=== PATIENT | female | born 1955 | race Caucasian/White ===

== ENCOUNTER 2019-05-01 05:45 | Inpatient (IN) ==
[2019-04-24 14:58] LABS: Apearance,Urine CLEAR (Clear); Bacteria,Urine Occasional /HPF (Few); Bilirubin,Urine Negative (Negative); Blood, Urine Negative (Negative); Glucose,Urine (UA) Negative (Negative); Ketones,Urine Negative (Negative); Mucus,Urine Occasional /LPF (Occasional); Nitrite,Urine Negative (Negative); Protein,Urine Negative; RBC,Urine 1 /HPF (0-4); Squamous Epithelial Cell,Urine Occasional /HPF (0-10); Urine Color Yellow (Yellow); Urine Specific Gravity 1.017 (1.001-1.035); Urine Urobilinogen < 2.0 EU/DL (0.2-1.0); WBC,Urine <1 /HPF (0-6)
[2019-04-24 15:03] LABS: PT Patient Result 10.7 SECS; Partial Thromboplastin Time 25.2 SECS (0-40)
[2019-04-24 15:06] LABS: Calcium 8.6 MG/DL (8.5-10.1); Osmolality,Calculated 283.1 MOS/KG (273-304)
[~2019-05-01 05:45] MED LIST: SODIUM CHLORIDE 0.9% 1,000 ML IV PRN
[2019-05-01] MEDS ORDERED: SCOPOLAMINE 1.5 MG PATCH TRANSDERM STA (06:15)
[2019-05-01 06:19] LABS: Basophils % 0.7 % (0.0-0.8); Eosinophils # 0.1 10*3/uL (0.0-0.87); Eosinophils % 1.2 % (0.00-10.9); Hematocrit 39.1 VOL% (35.7-47.0); Hemoglobin 12.7 GM/DL (12.0-16.0); Immature Granulocytes % 0.2 %; Immature Granulocytes Absolute 0.01 #; Lymphocytes # 1.7 10*3/uL (1.4-4.0); Lymphocytes % 29.7 % (21.3-54.2); Mean Corpuscular HGB Conc 32.5 GM/DL (32-36); Mean Corpuscular Volume 95.1 FL (87-102); Mean Platelet Volume 10.5 FL (9.6-12.0); Monocytes % 9.8 % (1.7-12.7); Neutrophils % 58.4 % (38.7-73.9); Platelet Count 210 T/CUMM (130-400); Red Blood Count 4.11 MC/CUMM (3.8-5.5); Red Cell Distribution Width 12.3 % (9.3-17.3); White Blood Count 5.7 T/CUMM (4-12)
[2019-05-01] MEDS ORDERED: DIAZEPAM 5 MG TABLET PO STA (06:20)
[2019-05-01] MEDS ORDERED: FAMOTIDINE 20 MG TABLET PO STA (06:20)
[2019-05-01] MEDS ORDERED: TISSUE ADHESIVE 1 EACH APPLICATOR TOP ONE (06:28)
[2019-05-01] MEDS ORDERED: BUPIVACAINE LIPOSOMAL 20 ML/266 MG VIAL ONE (06:28)
[2019-05-01] MEDS ORDERED: LACTATED RINGERS 1,000 ML IV SCH (06:30)
[2019-05-01] MEDS ORDERED: SCOPOLAMINE 1.5 MG PATCH TRANSDERM ONE (06:33)
[2019-05-01] MEDS ORDERED: FAMOTIDINE 20 MG TABLET ONE (06:33)
[2019-05-01] MEDS ORDERED: DIAZEPAM 5 MG TABLET ONE (06:33)
[2019-05-01] MEDS ORDERED: CEFUROXIME 1,500 MG VIAL ONE (06:46)
[2019-05-01] MEDS ORDERED: CEFUROXIME INJ 1,500 MG in SODIUM CHLORIDE 0.9% 100 ML IV ONE (07:03)
[2019-05-01] MEDS ORDERED: PHENYLEPHRINE DRIP 20 MG/250 ML PREMIX IV ONE (08:03)
[2019-05-01] MEDS ORDERED: ONDANSETRON 4 MG/2 ML VIAL IV PRN (10:32)
[2019-05-01] MEDS ORDERED: SUGAMMADEX 200 MG/2 ML VIAL IV ONE (10:38)
[2019-05-01] MEDS ORDERED: PROPOFOL 200 MG/20 ML VIAL IV ONE (10:40)
[2019-05-01] MEDS ORDERED: SEVOFLURANE 1 UNIT/15 MINUTE INH ONE (10:40)
[2019-05-01] MEDS ORDERED: PHENYLEPHRINE 1 MG/10 ML SYRINGE IV ONE (10:41)
[2019-05-01] MEDS ORDERED: fentaNYL 100 MCG/2 ML VIAL ONE (10:41)
[2019-05-01] MEDS ORDERED: MIDAZOLAM 2 MG/2 ML VIAL ONE (10:41)
[2019-05-01] MEDS ORDERED: ONDANSETRON 4 MG/2 ML VIAL ONE (10:41)
[2019-05-01] MEDS ORDERED: DEXAMETHASONE 4 MG/1 ML VIAL ONE (10:41)
[2019-05-01] MEDS ORDERED: ROCURONIUM 100 MG/10 ML VIAL IV ONE (10:42)
[2019-05-01] MEDS ORDERED: SODIUM CHLORIDE 0.9% 1,000 ML IV ONE (10:42)
[2019-05-01] MEDS ORDERED: LACTATED RINGERS 1,000 ML IV ONE (10:42)
[2019-05-01] MEDS ORDERED: SUCCINYLCHOLINE 200 MG/10 ML VIAL ONE (10:42)
[2019-05-01 10:45] LABS: Apearance,Urine CLEAR (Clear); Bacteria,Urine Occasional /HPF (Few); Bilirubin,Urine Negative (Negative); Blood, Urine Negative (Negative); Glucose,Urine (UA) Negative (Negative); Ketones,Urine Negative (Negative); Mucus,Urine Occasional /LPF (Occasional); Nitrite,Urine Negative (Negative); Protein,Urine Negative; RBC,Urine 2 /HPF (0-4); Squamous Epithelial Cell,Urine Occasional /HPF (0-10); Urine Color Yellow (Yellow); Urine Specific Gravity 1.014 (1.001-1.035); Urine Urobilinogen < 2.0 EU/DL (0.2-1.0)
[2019-05-01 10:56] LABS: Basophils % 0.2 % (0.0-0.8); Eosinophils % 0.1 % (0.00-10.9); Hematocrit 32.4 VOL% (35.7-47.0); Immature Granulocytes % 0.6 %; Immature Granulocytes Absolute 0.05 #; Lymphocytes # 1.2 10*3/uL (1.4-4.0); Lymphocytes % 13.2 % (21.3-54.2); Mean Corpuscular Volume 95.6 FL (87-102); Mean Platelet Volume 10.7 FL (9.6-12.0); Monocytes % 3.3 % (1.7-12.7); Neutrophils % 82.6 % (38.7-73.9); Platelet Count 186 T/CUMM (130-400); Red Blood Count 3.39 MC/CUMM (3.8-5.5); Red Cell Distribution Width 12.2 % (9.3-17.3)
[2019-05-01 10:59] LABS: Hemoglobin 10.7 GM/DL (12.0-16.0); White Blood Count 8.9 T/CUMM (4-12)
[2019-05-01 11:35] LABS: Calcium 7.8 MG/DL (8.5-10.1); Osmolality,Calculated 287.1 MOS/KG (273-304)
[2019-05-01] MEDS: KETOROLAC 15 MG/1 ML VIAL IV SCH ×3 (11:58→22:14)
[2019-05-01] MEDS: POTASSIUM CHLORIDE INJ 10 MEQ in SODIUM CHLORIDE 0.45% 1,000 ML IV SCH (11:58)
[2019-05-01] MEDS: GABAPENTIN 100 MG CAPSULE PO SCH ×2 (15:29→20:54)
[2019-05-01] MEDS: ACETAMINOPHEN INJ 1,000 MG in PREMIX 1 EACH IV SCH ×2 (16:38→22:15)
[2019-05-01] MEDS: CEFUROXIME INJ 1,500 MG in SYRINGE 1 EACH IV SCH (18:11)
[2019-05-02] MEDS: POTASSIUM CHLORIDE INJ 10 MEQ in SODIUM CHLORIDE 0.45% 1,000 ML IV SCH ×2 (01:04→16:12)
[2019-05-02 05:22] LABS: Basophils % 0.3 % (0.0-0.8); Hematocrit 31.2 VOL% (35.7-47.0); Hemoglobin 10.3 GM/DL (12.0-16.0); Immature Granulocytes % 0.3 %; Immature Granulocytes Absolute 0.03 #; Lymphocytes # 1.3 10*3/uL (1.4-4.0); Mean Platelet Volume 11.9 FL (9.6-12.0); Monocytes % 9.5 % (1.7-12.7); Neutrophils % 75.9 % (38.7-73.9); Platelet Count 174 T/CUMM (130-400); Red Blood Count 3.25 MC/CUMM (3.8-5.5); Red Cell Distribution Width 12.5 % (9.3-17.3); White Blood Count 9.3 T/CUMM (4-12)
[2019-05-02] MEDS: ACETAMINOPHEN 500 MG TABLET PO SCH ×4 (05:37→22:12)
[2019-05-02] MEDS: KETOROLAC 15 MG/1 ML VIAL IV SCH ×4 (05:37→22:13)
[2019-05-02 05:38] LABS: Calcium 7.6 MG/DL (8.5-10.1)
[2019-05-02] MEDS: CEFUROXIME INJ 1,500 MG in SYRINGE 1 EACH IV SCH (05:39)
[2019-05-02] MEDS: ENOXAPARIN 40 MG/0.4 ML SYRINGE SUBCUT SCH (05:39)
[2019-05-02] MEDS: GABAPENTIN 100 MG CAPSULE PO SCH ×3 (10:08→21:18)
[2019-05-02] MEDS: ASPIRIN EC 81 MG TABLET PO SCH (10:08)
[2019-05-02] MEDS: traMADol 50 MG TABLET PO PRN (10:08)
[2019-05-02] MEDS: PANTOPRAZOLE 40 MG VIAL IV SCH (10:09)
[2019-05-02] MEDS: CHOLECALCIFEROL 5,000 UNIT TABLET PO SCH (10:09)
[2019-05-02] MEDS: OMEGA 3 ACID ETHYL ESTERS 1 GM CAPSULE PO SCH (10:09)
[2019-05-02] MEDS: MULTIVITAMIN (BEROCCA) TABLET PO SCH (10:09)
[2019-05-02] MEDS: CELECOXIB 200 MG CAPSULE PO SCH ×2 (10:09→21:18)
[2019-05-03] MEDS: ENOXAPARIN 40 MG/0.4 ML SYRINGE SUBCUT SCH (04:39)
[2019-05-03] MEDS: ACETAMINOPHEN 500 MG TABLET PO SCH ×4 (04:39→21:58)
[2019-05-03] MEDS: KETOROLAC 15 MG/1 ML VIAL IV SCH (04:40)
[2019-05-03 05:34] LABS: Basophils % 0.4 % (0.0-0.8); Eosinophils # 0.1 10*3/uL (0.0-0.87); Eosinophils % 1.3 % (0.00-10.9); Hematocrit 30.4 VOL% (35.7-47.0); Hemoglobin 10.2 GM/DL (12.0-16.0); Immature Granulocytes % 0.2 %; Immature Granulocytes Absolute 0.02 #; Lymphocytes # 1.6 10*3/uL (1.4-4.0); Mean Corpuscular HGB Conc 33.6 GM/DL (32-36); Mean Corpuscular Volume 95.6 FL (87-102); Mean Platelet Volume 11.2 FL (9.6-12.0); Monocytes % 8.3 % (1.7-12.7); Neutrophils % 70.8 % (38.7-73.9); Platelet Count 175 T/CUMM (130-400); Red Blood Count 3.18 MC/CUMM (3.8-5.5); Red Cell Distribution Width 12.7 % (9.3-17.3); White Blood Count 8.4 T/CUMM (4-12)
[2019-05-03 05:51] LABS: Calcium 8.2 MG/DL (8.5-10.1)
[2019-05-03] MEDS: ASPIRIN EC 81 MG TABLET PO SCH (08:56)
[2019-05-03] MEDS: MULTIVITAMIN (BEROCCA) TABLET PO SCH (08:56)
[2019-05-03] MEDS: GABAPENTIN 100 MG CAPSULE PO SCH ×3 (08:56→20:57)
[2019-05-03] MEDS: OMEGA 3 ACID ETHYL ESTERS 1 GM CAPSULE PO SCH (08:56)
[2019-05-03] MEDS: CHOLECALCIFEROL 5,000 UNIT TABLET PO SCH (08:56)
[2019-05-03] MEDS: CELECOXIB 200 MG CAPSULE PO SCH ×2 (08:56→20:57)
[2019-05-03] MEDS: PANTOPRAZOLE 40 MG VIAL IV SCH (08:57)
[2019-05-03] MEDS: Progesterone Micronized 200 MG PO SCH (08:58)
[2019-05-03] MEDS ORDERED: ENOXAPARIN 40 MG/0.4 ML SYRINGE SUBCUT SCH (22:39)
[2019-05-04] MEDS: ACETAMINOPHEN 500 MG TABLET PO SCH ×4 (04:09→22:30)
[2019-05-04 05:40] LABS: Basophils % 0.3 % (0.0-0.8); Eosinophils # 0.2 10*3/uL (0.0-0.87); Eosinophils % 1.8 % (0.00-10.9); Hematocrit 30.8 VOL% (35.7-47.0); Immature Granulocytes % 0.3 %; Immature Granulocytes Absolute 0.03 #; Lymphocytes % 9.4 % (21.3-54.2); Mean Corpuscular HGB Conc 32.5 GM/DL (32-36); Mean Corpuscular Volume 95.1 FL (87-102); Mean Platelet Volume 11.1 FL (9.6-12.0); Monocytes % 5.1 % (1.7-12.7); Neutrophils % 83.1 % (38.7-73.9); Platelet Count 184 T/CUMM (130-400); Red Blood Count 3.24 MC/CUMM (3.8-5.5); Red Cell Distribution Width 12.6 % (9.3-17.3); White Blood Count 10.5 T/CUMM (4-12)
[2019-05-04 06:03] LABS: Calcium 8.1 MG/DL (8.5-10.1); Osmolality,Calculated 291.7 MOS/KG (273-304)
[2019-05-04] MEDS: CHOLECALCIFEROL 5,000 UNIT TABLET PO SCH (09:24)
[2019-05-04] MEDS: CELECOXIB 200 MG CAPSULE PO SCH ×2 (09:24→20:56)
[2019-05-04] MEDS: OMEGA 3 ACID ETHYL ESTERS 1 GM CAPSULE PO SCH (09:25)
[2019-05-04] MEDS: GABAPENTIN 100 MG CAPSULE PO SCH ×3 (09:25→20:56)
[2019-05-04] MEDS: PANTOPRAZOLE 40 MG VIAL IV SCH (09:25)
[2019-05-04] MEDS: MULTIVITAMIN (BEROCCA) TABLET PO SCH (09:27)
[2019-05-04] MEDS: ASPIRIN EC 81 MG TABLET PO SCH (09:27)
[2019-05-04] MEDS: ENOXAPARIN 40 MG/0.4 ML SYRINGE SUBCUT SCH (09:29)
[2019-05-04] MEDS: Progesterone Micronized 200 MG PO SCH (11:11)
[2019-05-04] MEDS: traMADol 50 MG TABLET PO PRN (23:42)
[2019-05-05] MEDS: ACETAMINOPHEN 500 MG TABLET PO SCH ×4 (04:12→21:38)
[2019-05-05] MEDS: MULTIVITAMIN (BEROCCA) TABLET PO SCH (08:55)
[2019-05-05] MEDS: OMEGA 3 ACID ETHYL ESTERS 1 GM CAPSULE PO SCH (08:56)
[2019-05-05] MEDS: CELECOXIB 200 MG CAPSULE PO SCH ×2 (08:56→21:17)
[2019-05-05] MEDS: CHOLECALCIFEROL 5,000 UNIT TABLET PO SCH (08:56)
[2019-05-05] MEDS: ENOXAPARIN 40 MG/0.4 ML SYRINGE SUBCUT SCH (08:57)
[2019-05-05] MEDS: ASPIRIN EC 81 MG TABLET PO SCH (08:57)
[2019-05-05] MEDS: PANTOPRAZOLE 40 MG VIAL IV SCH (08:57)
[2019-05-05] MEDS: GABAPENTIN 100 MG CAPSULE PO SCH ×3 (08:57→21:17)
[2019-05-06] MEDS: ACETAMINOPHEN 500 MG TABLET PO SCH ×4 (04:36→22:45)
[2019-05-06] MEDS: OMEGA 3 ACID ETHYL ESTERS 1 GM CAPSULE PO SCH (08:43)
[2019-05-06] MEDS: CHOLECALCIFEROL 5,000 UNIT TABLET PO SCH (08:43)
[2019-05-06] MEDS: MULTIVITAMIN (BEROCCA) TABLET PO SCH (08:43)
[2019-05-06] MEDS: CELECOXIB 200 MG CAPSULE PO SCH ×2 (08:43→20:55)
[2019-05-06] MEDS: ASPIRIN EC 81 MG TABLET PO SCH (08:44)
[2019-05-06] MEDS: GABAPENTIN 100 MG CAPSULE PO SCH ×3 (08:44→20:55)
[2019-05-06] MEDS: ENOXAPARIN 40 MG/0.4 ML SYRINGE SUBCUT SCH (08:44)
[2019-05-06] MEDS: PANTOPRAZOLE 40 MG VIAL IV SCH (08:45)
[2019-05-07] MEDS: ACETAMINOPHEN 500 MG TABLET PO SCH ×2 (04:40→09:41)
[2019-05-07 08:17] VITALS: BP 145/81
[2019-05-07] MEDS: CHOLECALCIFEROL 5,000 UNIT TABLET PO SCH (09:41)
[2019-05-07] MEDS: CELECOXIB 200 MG CAPSULE PO SCH (09:41)
[2019-05-07] MEDS: ASPIRIN EC 81 MG TABLET PO SCH (09:41)
[2019-05-07] MEDS: OMEGA 3 ACID ETHYL ESTERS 1 GM CAPSULE PO SCH (09:42)
[2019-05-07] MEDS: GABAPENTIN 100 MG CAPSULE PO SCH (09:42)
[2019-05-07] MEDS: ENOXAPARIN 40 MG/0.4 ML SYRINGE SUBCUT SCH (09:42)
[2019-05-07] MEDS: MULTIVITAMIN (BEROCCA) TABLET PO SCH (09:45)
[2019-05-07] MEDS: PANTOPRAZOLE 40 MG VIAL IV SCH (09:45)
== END 2019-05-07 11:48 | disposition home health service (06) | DRG 164 ==
LOC: N.SDSINP 05:45 → N.ICU 10:34 → N.TELES 05-02 15:50
PROVIDERS: ADMIT Thoracic Surgery (Cardiothoracic Vascular Surgery); ATTEND Thoracic Surgery (Cardiothoracic Vascular Surgery)